=== PATIENT | male | born 1965 | race Caucasian/White ===

== ENCOUNTER 2017-06-20 20:49 | Emergency (ER) | payer OTHER ==
[2017-06-20 20:56] VITALS: BP 148/97
== END 2017-06-20 23:31 | disposition left against medical advice (07) ==
LOC: ED 20:49
DX: Z53.21 Procedure and treatment not carried out due to patient leaving prior to being seen by health care provider (principal)

== ENCOUNTER 2017-08-26 11:34 | Emergency (ER) | payer OTHER ==
[2017-08-26 13:15] LABS: BASOPHIL % 0.4 % (0-2); PLATELET COUNT 314 x10^3mcL (130-400); RED CELL DISTRIBUTION WIDTH 14.2 % (11.5-14.5)
[2017-08-26 13:34] LABS: CALCIUM 8.7 mg/dL (8.5-10.1); CARBON DIOXIDE 28.7 mmol/L (21-32); CHLORIDE SERUM 105 mmol/L (98-107); CREATININE SERUM 0.8 mg/dL (0.7-1.3); GFR1 > 60 mL/min; GLUCOSE SERUM 136 mg/dL (74-106); POTASSIUM SERUM 3.7 mmol/L (3.5-5.1); SODIUM SERUM 142 mmol/L (136-145)
[2017-08-26 13:38] LABS: ALBUMIN 3.7 g/dL (3.4-5.0); ALKALINE PHOSPHATASE 97 U/L (46-116); ALT/SGPT 33 U/L (16-63); AMYLASE 36 U/L (25-115); AST/SGOT 15 U/L (15-37); BILIRUBIN TOTAL 0.3 mg/dL (0.20-1.00); HDL CHOLESTEROL 40 mg/dL (40-60); LIPASE 107 IU/L (73-393); TOTAL PROTEIN, SERUM 7.4 g/dL (6.4-8.2)
[2017-08-26 13:40] LABS: CHOLESTEROL 220 mg/dL (<200)
[2017-08-26 14:08] LABS: UA SPECIFIC GRAVITY 1.025 (1.005-1.035); microscopic required? YES; urine erythrocyte NEGATIVE (NEGATIVE)
[2017-08-26 14:20] LABS: AMPHETAMINE QUAL UR NONE DETECTED (NEG <=1000)
[2017-08-26 15:45] VITALS: BP 138/71
== END 2017-08-26 15:45 | disposition home or self-care (01) ==
LOC: ED 11:34
PROVIDERS: Emergency Medicine
DX: J98.01 Acute bronchospasm (principal); F17.210 Nicotine dependence, cigarettes, uncomplicated
CPT/HCPCS: 83880; 99406; J2930; J7613; J7644